=== PATIENT | female | born 1990 | race African-American/Black ===

== ENCOUNTER 2017-06-17 12:00 | Emergency (ER) | payer SELFPAY ==
[~2017-06-17] VITALS: Ht 170.2 cm; Wt 52.2 kg
[2017-06-17 12:33] VITALS: BP 110/69
== END 2017-06-17 12:37 | disposition home or self-care (01) ==
LOC: ER 12:01
DX: J06.9 Acute upper respiratory infection, unspecified (principal)
CPT/HCPCS: 99281; A4606; Z7610; Z7502